=== PATIENT | male | born 1960 | race Caucasian/White ===

== ENCOUNTER 2019-11-27 10:10 | Inpatient (IN) | payer MEDICARE, OTHER, SELFPAY ==
[2019-11-27] VITALS (11 sets, daily range): BP systolic 96–179; BP diastolic 56–115; PULSE 88–108; RESP 18–26; TEMP 36.4–36.9; O2SAT 92–95; BMI 34.0; BMI 26.4
--- NOTE | 2019-11-27 10:19 | ECG_ITS ---
APPROVED REPORT Exam: Resting ECG HR:105 bpm ECG Measurements Heart Rate 105 AXES DE 138 P 61 QRSd 90 QRS 57 QT 368 T 61 QTc 486 <Conclusion> Sinus tachycardia Left atrial abnormality Borderline ECG Electronically signed by : Nasim Barnett, 11/28/2019 07:21:20
--- NOTE | 2019-11-27 10:22 | XR_ITS ---
PROCEDURE: XR CHEST PORTABLE Referring Doctor: Javier Nunez Patient Age:59Y CLINICAL HISTORY: confusion mental status changes. Possible fall COMPARISON: CR [id number] from 09/02/[address] HEAD/BRAIN WO CON from 11/27/[address] CERVICAL SPINE WO CON from 11/27/2019 FINDINGS: Airspace disease at the right lower lobe with elevation right hemidiaphragm. Suspect this reflects mainly atelectasis RLL with possible infiltrate. The right infrahilar region is generous and slightly dense-will require follow-up PA and lateral chest. A CT chest may be considered subsequently if the right infrahilar prominence persist but the right upper lung appears slightly hyperexpanded. The left lung is clear unremarkable. Heart is upper normal in size. Left gricel superior mediastinum unremarkable. No pleural effusion, no pneumothorax. IMPRESSION: Airspace disease right lower lobe with elevation right hemidiaphragm I suspect mainly viewing mainly atelectasis RLL,, with possible associated pneumonic infiltrate . Suggestion of slightly dense and generous right infrahilar region warrants follow-up on subsequent PA and lateral CXRs studies-and if persist CT may be warranted. Dictated by: Jasvir Murdock MD 11/27/2019 12:19 Jasvir Murdock MD in [place] 11/27/2019 12:19
--- NOTE | 2019-11-27 10:22 | CT_ITS ---
PROCEDURE: CT HEAD/BRAIN WO CON Referring Doctor: Javier Nunez Patient Age:59Y CLINICAL INDICATION: confusion fell Altered mental status COMPARISON: CT CT CERVICAL SPINE WO CON from 11/27/2019 TECHNIQUE: Standard axial images were obtained.. No IV contrast. All CT scans at the facility use one or more dose reduction, viz: automated exposure control, ma/kV adjustment per patient size (including targeted exams where dose is matched to indication, i.e. head), or iterative reconstruction technique. FINDINGS: The head is tilted in the CT gantry but despite this there appears to be additional low-density overlying the left frontal lobe. This is most evident more inferiorly overlying the left frontal lobe where this collection measures up to 6.3 mm CSF density collection maximum thickness overlying the left frontal lobe. This appearance suggestion a suspect for a thin chronic subdural hematoma. Is there history of prior head trauma?. This suspect small chronic subdural extends back tapering towards the left temporal lobe. And also also appears to be evident at the floor the left cranial fossa on this axial only image set.. There is no prominent associated mass effect; only question some very slight loss of sulci at the left frontal lobe and slightly... No midline shift. . No acute hemorrhage, no discrete acute extra-axial collection evident. Third ventricle and lateral ventricles otherwise unremarkable. Posterior fossa. No acute findings there may be some mild atrophy and I would note that the subdural spaces slightly more generous than left than right but this may merely be due to atrophy in positioning at the posterior fossa. Tortuous ectatic left vertebral artery noted. Mild atherosclerotic calcification at the vessels [id number] but no prominent findings here. The visualized portions the paranasal sinuses are clear. No mucosal thickening or air-fluid levels. Orbits unremarkable. Mastoid air cells a extensively developed and clear on right. Left mastoid is less well developed and there is opacification of many of the remaining mastoid air cells here towards mastoid tip of reflecting mild mastoid effusion. The middle ears clear bilaterally. IAC's unremarkable. Skull intact IMPRESSION: 1.Findings suggest small old appearing, low-density thin chronic subdural collection overlying the left frontal lobe.. No midline shift or prominent mass effect is; only perhaps slight loss of sulci at frontal lobe 2..No acute hemorrhage. No acute appearing extra-axial collection 3. Other minor observations in body of report Dictated by: Jasvir Murdock MD 11/27/2019 11:32 Jasvir Murdock MD in [place] 11/27/2019 11:32
[2019-11-27 10:37] LABS: Microscopic, Urine URINE MICROSCOPIC (MICROSCOPIC)
[2019-11-27 10:41] LABS: Appearance,Urine CLEAR (Clear); Blood, Urine 1+ (Negative); Color,Urine DK YELLOW (Yellow); Glucose,Urine (UA) Negative (Negative); Ketones,Urine TRACE (Negative); Leukocyte Esterase,Urine Negative (Negative); Nitrate,Urine Negative (Negative); Protein,Urine 1+ (Negative); Specific Gravity, Urine 1.025 (1.005-1.030)
[2019-11-27 10:42] LABS: Chloride 102 mmol/L (98-107); Potassium 3.2 mmoL/L (3.5-5.1); Sodium 143 mmol/L (136-145)
[2019-11-27 10:43] LABS: Basophils % 0.4 % (0.1-2.0); Eosinophils % 0.3 % (0.1-12.0); Hematocrit 49.9 % (42.0-52.0); Hemoglobin 17.7 g/dL (14.1-18.0); Lymphocytes # 1.1 K/mm3 (0.7-4.5); Lymphocytes % 11.7 % (10-50); Mean Corpuscular HGB Conc 35.4 g/dL (31.8-35.4); Mean Corpuscular Hemoglobin 33.3 pg (27.0-31.2); Mean Corpuscular Volume 93.8 fl (80-94); Mean Platelet Volume 10.7 fl (7.4-10.4); Monocytes # 0.5 K/mm3 (0.1-1.0); Neutrophils # 7.4 K/mm3 (1.8-7.8); Neutrophils % 81.6 % (37.0-80.0); Platelet Count 204 K/mm3 (142-424); Red Blood Count 5.32 M/mm3 (4.60-6.20); Red Cell Distribution Width 14.8 % (11.5-17.5)
[2019-11-27 10:44] LABS: Blood Urea Nitrogen 45 mg/dl (9-20); Creatinine Clearance Estimated 111 mL/min (50-200); Estimated Glomerular Filt Rate 76 ml/min (>60); GFR (African American) 93 ML/MIN (>60)
[2019-11-27 10:45] LABS: Bilirubin,Urine 1+ (Negative)
[2019-11-27 10:45] LABS: Alanine Aminotransferase 213 U/L (12-78); Albumin/Globulin Ratio 1.1 (1.1-1.8); Alkaline Phosphatase 98 U/L (38-126); Anion Gap 19.2 mEq/L (5-15); Aspartate Amino Transferase 402 U/L (17-59); Calcium 9.4 mg/dl (8.4-10.2); Carbon Dioxide 25 mmol/L (22.0-30.0); Globulin 3.7 g/dL (1.3-3.2); Glucose 119 mg/dl (74-100); Total Protein,Serum 7.7 g/dl (6.3-8.2)
--- NOTE | 2019-11-27 10:45 | HMH.EDGENADL ---
ED Disposition Clinical Impression: Rhabdomyolysis, Pneumonia, Subdural hematoma, Hypermagnesemia, Hyperphosphatemia, Altered mental status Disposition: Admitted As Inpatient Condition on Discharge: Fair (admitted) - Critical Care Critical Care Time: No Attestation: On 11/27/19, the high probability of a clinically significant, sudden or life threatening deterioration of the following system(s) required my full and direct attention, intervention and personal management. The time I documented below is in addition to time spent performing reported procedures but includes the following listed in this critical care notation. Medical Decision Making - Medical Records Medical records reviewed: Yes: I reviewed the patient's medical records. - Moe Inquiry Pt receiving controlled substance: No Vital Signs: 11/27/19 10:11 11/27/19 10:50 11/27/19 11:00 Temperature 97.7 F Temperature Source Rectal Pulse Rate [Left Radial] 104 H 106 H 106 H Respiratory Rate 20 Blood Pressure [Right Arm] 159/105 H 179/115 H 132/105 H Blood Pressure Mean [Right Arm] 123 136 114 Blood Pressure Source [Right Arm] Automatic Cuff Blood Pressure Position [Right Arm] Sitting Sitting Sitting 02 Sat by Pulse Oximetry 94 L 92 L Oxygen Delivery Method Room Air Room Air 11/27/19 11:30 11/27/19 12:25 Temperature Temperature Source Pulse Rate [Left Radial] 108 H 99 H Respiratory Rate Blood Pressure [Right Arm] 158/106 H 166/100 H Blood Pressure Mean [Right Arm] 123 122 Blood Pressure Source [Right Arm] Automatic Cuff Blood Pressure Position [Right Arm] Sitting Sitting 02 Sat by Pulse Oximetry 94 L Oxygen Delivery Method Room Air - Lab Data Lab Results 11/27/19 09:34: WBC 9.0, RBC 5.32, Hgb 17.7, Hct 49.9, MCV 93.8, MCH 33.3 H, MCHC 35.4, RDW 14.8, Plt Count 204, MPV 10.7 H, Neut % (Auto) 81.6 H, Lymph % (Auto) 11.7, [place] % (Auto) 6.0, Eos % (Auto) 0.3, Baso % (Auto) 0.4, Neut # (Auto) 7.4, Lymph # (Auto) 1.1, [place] # (Auto) 0.5, Eos # (Auto) 0.0, Baso # (Auto) 0.0 11/27/19 09:34: Sodium 143, Potassium 3.2 L, Chloride 102, Carbon Dioxide 25, Anion Gap 19.2 H, BUN 45 H, Creatinine 1.00, Estimated Creat Clear 111, Estimated GFR 76, Est GFR ( Amer) 93, Glucose 119 H, Calcium 9.4, Total Bilirubin 2.0 H, AST 402 H*, ALT 213 H, Alkaline Phosphatase 98, Total Protein 7.7, Albumin 4.0, Globulin 3.7 H, Albumin/Globulin Ratio 1.1 11/27/19 09:34: Total Creatine Kinase 2763 H*, CK-MB (CK-2) 14.1 H*, CK-MB (CK-2) Rel Index 0.5, Troponin I < 0.01 11/27/19 09:34: PT 13.5 H, INR 1.24 H, Fibrinogen 829 H 11/27/19 09:34: Phosphorus 4.0, Magnesium 3.0 H 11/27/19 09:43: SARS-CoV-2 IgG Ab (Rapid) Negative, SARS-CoV-2 IgM Ab (Rapid) Negative 11/27/19 10:23: Urine Color Dk yellow, Urine Appearance Clear, Urine pH 6.0, Ur Specific [place] 1.025, Urine Protein 1+, Urine Glucose (UA) Negative, Urine Ketones Trace, Urine Blood 1+, Urine Nitrate Negative, Urine Bilirubin 1+ A, Urine Urobilinogen 1.0, Ur Leukocyte Esterase Negative, Urine RBC 5-10, Urine WBC 3-5, Ur Squamous Epith Cells 3-5 11/27/19 10:24: Lactate 3.5 H 11/27/19 10:24: Urine Opiates Screen Negative, Urine Methadone Screen Negative, Ur Barbituates Screen Negative, Ur Phencyclidine Scrn Negative, Ur Amphetamines Screen Negative, U Benzodiazepines Scrn Negative, Urine Cocaine Screen Negative, U Marijuana (THC) Screen Negative Result diagrams: 11/27/19 09:34 11/27/19 09:34 Orders (Tests/Meds): ED MEDICATIONS Generic Name Dose Route Start Last Admin Trade Name Freq PRN Reason Stop Dose Admin Carvedilol 12.5 mg 11/27/19 12:30 Carvedilol 12.5mg Tablet PO 12/27/19 12:29 BID BAYRON Azithromycin 500 mg/ Sodium 250 mls @ 250 mls/hr 11/27/19 12:00 11/27/19 12:02 Chloride IV 12/11/19 11:59 250 mls/hr Q24H BAYRON Administration Protocol Ceftriaxone Sodium 1 gm/ 50 mls @ 100 mls/hr 11/27/19 12:00 11/27/19 11:55 Sodium Chloride IV 12/11/19 11:59 100 mls/hr Q24
[2019-11-27 10:46] LABS: Lactic Acid 3.5 mmol/L (0.7-2.1)
[2019-11-27 10:52] LABS: Benzodiazepines Screen,Urine Negative ng/ml (<200)
[2019-11-27 10:53] LABS: Amphetamine/Metha Screen,Urine Negative ng/ml (<1000); Barbiturates Screen,Urine Negative ng/ml (<200)
[2019-11-27 10:54] LABS: Methadone Screen,Urine Negative ng/ml (<300)
[2019-11-27 10:55] LABS: Cannabinoid Screen,Urine Negative ng/ml (<50); Cocaine Screen,Urine Negative ng/ml (<300)
[2019-11-27 10:56] LABS: Opiate Screen,Urine Negative ng/ml (<300)
[2019-11-27 10:57] LABS: Phencyclidine Screen,Urine Negative ng/ml (<25)
[2019-11-27 10:57] LABS: Creatine Kinase 2763 U/L (55-170)
--- NOTE | 2019-11-27 10:57 | CT_ITS ---
PROCEDURE: CT CERVICAL SPINE WO CON Referring Doctor: Javier Nunez Patient Age:59Y CLINICAL INDICATION: tenderness fall confusion altered mental status COMPARISON: No exams were available for comparison TECHNIQUE: No IV contrast Helical axial images obtained with sagittal and coronal reformats. All CT scans at the facility use one or more dose reduction, viz: automated exposure control, ma/kV adjustment per patient size (including targeted exams where dose is matched to indication, i.e. head), or iterative reconstruction technique. FINDINGS: No acute fracture nor subluxation C-spine.. Normal prevertebral soft tissues.. Normal C1/C2 relationships. There are degenerative changes in the C-spine. C3/4 with scant posterior spurring at midline and borderline disc space narrowing C4/5 scant uncovertebral joint hypertrophy to the left C5/6 degenerative disc space narrowing most notable at this level with prominent diffuse posterior osteophytic ridging and spurring, yielding spinal stenosis and generous bilateral foraminal encroachment. C6/7. Moderate focal posterior spurring right paracentral which slightly indents thecal sac to the right. C7/T1 intact.. Mild Minimal degenerative facet changes noted at C5/6 C6/7 Apices of lungs are clear with no acute findings. Again note the left mastoid air cells are less well developed with opacification of few of the mastoid air cells most evident towards left mastoid tip reflecting scant left mastoid effusion IMPRESSION: 1.Cervical spine intact with no acute fracture nor subluxation. 2.Degenerative changes C-spine more-most pronounced at C5/6. C5/6 degenerative disc narrowing with spinal stenosis due the prominent diffuse posterior spurring/osteophyte formation Dictated by: Jasvir Murdock MD 11/27/2019 11:40 Jasvir Murdock MD in [place] 11/27/2019 11:40
[2019-11-27 10:58] LABS: CKMB Relative Index 0.5 U/L (0-4.0); Creatine Kinase MB 14.1 ng/ml (0.0-2.03)
[2019-11-27 10:59] LABS: Troponin I < 0.01 ng/ml (0.00-0.034)
--- NOTE | 2019-11-27 10:59 | PC.NURSE ---
Pt to rad
--- NOTE | 2019-11-27 10:59 | PC.NURSE ---
aware of critical results
[2019-11-27 11:36] LABS: Coronavirus 19 IgG Antibody Negative (Negative); Coronavirus 19 IgM Antibody Negative (Negative)
[2019-11-27 11:36] LABS: Prothrombin Time 13.5 seconds (9.4-11.8)
[2019-11-27 11:37] LABS: INR 1.24 (0.9-1.1)
[2019-11-27 11:38] LABS: Fibrinogen 829 mg/dL (204-500)
--- NOTE | 2019-11-27 12:11 | PC.NURSE ---
spoke with carmen ARANGO regarding pt admission. was unable to reach care management x 4 calls
--- NOTE | 2019-11-27 12:34 | PC.NURSE ---
report called to sarah lanier rn
--- NOTE | 2019-11-27 12:46 | PC.NURSE ---
Pt arrived to the floor at this time.
--- NOTE | 2019-11-27 13:25 | P.CONPHA_ITS ---
[facility] Pharmacy VTE Monitoring - Patient Demographics Admission date: 11/27/19 Report Date: 11/27/19 Time: 13:25 Allergies/Adverse Reactions: Patient Allergies loratadine Allergy (Unknown, Verified 11/27/19 11:02) Unknown allergy reaction Tetracyclines Allergy (Unknown, Verified 11/27/19 11:02) Unknown allergy reaction Height: 1.7 m Weight: 98.43 kg Patient Problems: Current Active Problems Rhabdomyolysis (Acute) Pneumonia (Acute) Subdural hematoma (Acute) Hypermagnesemia (Acute) Hyperphosphatemia (Acute) Altered mental status (Acute) - VTE Risk Labs: VTE Related Lab Results Hgb 17.7 g/dL (14.1-18.0) 11/27/19 09:34 Hct 49.9 % (42.0-52.0) 11/27/19 09:34 Plt Count 204 K/mm3 (142-424) 11/27/19 09:34 PT 13.5 seconds (9.4-11.8) H 11/27/19 09:34 INR 1.24 (0.9-1.1) H 11/27/19 09:34 Fibrinogen 829 mg/dL (204-500) H 11/27/19 09:34 BUN 45 mg/dl (9-20) H 11/27/19 09:34 Creatinine 1.00 mg/dl (0.66-1.25) 11/27/19 09:34 Estimated Creat Clear 111 mL/min (50-200) 11/27/19 09:34 VTE Score: 2 - Prophylaxis VTE Prophylaxis Ordered?: Yes Types of VTE Prophylaxis: TEDS Knee High Location of Applied Device: Bilateral Lower Extremeties
--- NOTE | 2019-11-27 13:33 | HMH.PHAINT ---
MEDICATION RECONCILIATION COMPLETED ON PATIENT USING EXTERNAL FILL HISTORY FROM PHARMACY. -MALATHI OLIVER, CHARLEYD
--- NOTE | 2019-11-27 14:26 | HMH.PHAINT ---
HOME MEDICATIONS RECONCILED FROM DR. BEARD OFFICE MED LIST. PATIENT IS A POOR HISTORIAN AND DOES NOT KNOW THE LAST TIME HE TOOK MOST OF THESE. SERTRALINE AND CARVEDILOL ARE THE ONLY MEDS HE'S HAD FILLED IN THE LAST 30 DAYS.
[2019-11-27 14:34] LABS: Reflex Lactic Add Lactic Reflex
[2019-11-27 15:11] LABS: Lactic Acid Follow Up (RFLX 1) 2.2 mmol/L (0.7-2.1)
--- NOTE | 2019-11-27 16:13 | HMH.HP ---
*Admission Date: 11/27/19 *Chief complaint: Found down at home *History of present illness: 59-year-old male with history of hypertension, hypothyroidism, and suspected COPD presented to the emergency department today after family alerted EMS when patient was found in his residence on the floor with inability to get up and patient was confused as to how he had fallen. Patient had been on the floor for unknown period of time but it was suspected to be several hours as the patient could only recall the prior evening. He underwent evaluation in the emergency department which revealed elevated CPK consistent with rhabdomyolysis and work-up also revealed a right lower lobe infiltrate. Patient was admitted for IV fluids and IV antibiotics. Patient does report that he has had subjective fevers and chills over the last 4 to 5 days with a dry cough. He denies loss of smell or taste. He denies nasal congestion, ear pain, sore throat. Patient denies shortness of breath. He denies any sick contacts. [facility] History I have reviewed the patient's past medical history: Yes Medical History: Reports:: Chronic Obstructive Pulmonary Disease (COPD), Hypertension Denies:: Cancer, Diabetes Mellitus Type 1, Diabetes Mellitus Type 2, MRSA *Have you ever received a pneumonia vaccine?: No *Have you received a flu vaccine this season?: No Other Medical History: Reports: Hypothyroidism Laterality Cases: Bilateral: Cataract Amputation: No Fractures: No - *Social History Last grade of school completed: 5th or 6th Smoking Status: Current every day smoker Tobacco Type: cigarettes # Packs/Day (cigarettes): 1 Alcohol Intake: never *Occupational Status:: disabled Housing: other Household Members: other *Travel in the last 8 weeks: None Family Hx:: Unable to obtain Review of Systems - Constitutional Reports body ache(s), Reports chills, Reports fever(s) - Eyes Reports loss of vision - *Cardiovascular Denies chest pain, Denies chest pain at rest, Denies chest pain with activity - *Respiratory Reports cough, Denies change in phlegm color, Denies chest congestion, Denies shortness of breath, Denies shortness of breath with activity, Denies excessive phlegm production, Denies coughing up blood, Denies pain with cough - *Gastrointestinal Denies abdominal pain, Denies belching, Denies bloating - *Musculoskeletal Denies abnormal walking Meds Home Medications Medication Instructions Recorded Confirmed Type Cetirizine HCl 10 mg PO DAILY 11/27/19 11/27/19 History Levothyroxine Sodium 50 mcg PO DAILY 11/27/19 11/27/19 History [Levothyroxine 50mcg (0.05mg) Tab] Sertraline HCl [Zoloft 50mg tablet] 50 mg PO DAILY 11/27/19 11/27/19 History carvediloL [Carvedilol 12.5mg Tab] 12.5 mg PO BID 11/27/19 11/27/19 History gemfibroziL [Gemfibrozil] 600 mg PO BID 11/27/19 11/27/19 History Allergies Allergy/AdvReac Type Severity Reaction Status Date / Time loratadine Allergy Unknown Unknown Verified 11/27/19 11:02 allergy reaction Tetracyclines Allergy Unknown Unknown Verified 11/27/19 11:02 allergy reaction Exam Vital signs and Labs for Last 24 Hours: Temp Pulse Resp BP Pulse Ox 98.1 F 88 24 132/73 95 11/27/19 15:43 11/27/19 15:43 11/27/19 15:43 11/27/19 15:43 11/27/19 15:43 Laboratory Results - last 24 hr 11/27/19 09:34: WBC 9.0, RBC 5.32, Hgb 17.7, Hct 49.9, MCV 93.8, MCH 33.3 H, MCHC 35.4, RDW 14.8, Plt Count 204, MPV 10.7 H, Neut % (Auto) 81.6 H, Lymph % (Auto) 11.7, [place] % (Auto) 6.0, Eos % (Auto) 0.3, Baso % (Auto) 0.4, Neut # (Auto) 7.4, Lymph # (Auto) 1.1, [place] # (Auto) 0.5, Eos # (Auto) 0.0, Baso # (Auto) 0.0 11/27/19 09:34: Sodium 143, Potassium 3.2 L, Chloride 102, Carbon Dioxide 25, Anion Gap 19.2 H, BUN 45 H, Creatinine 1.00, Estimated Creat Clear 111, Estimated GFR 76, Est GFR ( Amer) 93, Glucose 119 H, Calcium 9.4, Total Bilirubin 2.0 H, AST 402 H*, ALT 213 H, Alkaline Phosphatase 98, Total Prote
[2019-11-27 16:50] LABS: Reflex Lactic (2 hrs) Add Lactic Reflex
--- NOTE | 2019-11-27 17:03 | PC.NURSE ---
PT IS RESTING IN BED. NO COMPLAINTS OF DISCOMFORT. WHEN PT ARRIVED TO THE FLOOR FROM THE ED HE WAS ALERT AND ORIENTED X3. PT WAS ABLE TO VOICE NAME/ AND HE KNEW HE WAS AT THE HOSPITAL. PT WAS NOT AWARE OF WHAT TIME IT WAS AND DOES NOT REMEMBER FALLING AT HOME OR HOW LONG HE WAS ON THE FLOOR. PT STATED HE DID NOT KNOW THE LAST TIME HE TOOK HIS DAILY MEDICATIONS. PT DOES REMEMBER THE AMBULANCE BRINGING HIM TO THE HOSPITAL. PT HAS AN ABRASION TO THE LUE WITH TELFA/KERLIX DRESSING. REDNESS NOTED TO THE BUTTOCKS. LUNG SOUNDS DIMINISHED. ABDOMEN SOFT/NON TENDER WITH ACTIVE BOWEL SOUNDS. RECEIVED TYLENOL FOR ELEVATED TEMP 100.5, TEDS NOTED TO BLE. PT STATES HE CAN ONLY SEE OUT OF HIS RT EYE. WILL CONTINUE TO MONITOR.
[2019-11-27 17:50] LABS: Lactic Acid Follow up (RFLX 2) 1.5 mmol/L (0.7-2.1)
--- NOTE | 2019-11-27 18:56 | PC.NURSE ---
RT gave pt a neb tx with sodium chloride to induce SPT. SPT collected and sent to lab from second floor at 181
--- NOTE | 2019-11-27 19:33 | PC.NURSE ---
Pt's O2 sat at rest on room air = 92%.
[2019-11-28] VITALS (7 sets, daily range): BP systolic 101–125; BP diastolic 60–66; PULSE 75–87; RESP 16–18; TEMP 36.4–37.1; O2SAT 91–98; BMI 27.3
--- NOTE | 2019-11-28 03:48 | PC.NURSE ---
pt A&OX4 lungs CTA. pt denies SOA or pain. BS active F/c draining dark yellow urine. TEDS in place BLE. bed alarm activated. pt has rested quietly this shift
[2019-11-28 06:29] LABS: Lymphocytes # 0.8 K/mm3 (0.7-4.5); Mean Platelet Volume 9.9 fl (7.4-10.4)
[2019-11-28 06:38] LABS: INR 1.19 (0.9-1.1)
[2019-11-28 06:56] LABS: Chloride 115 mmol/L (98-107); Sodium 141 mmol/L (136-145)
[2019-11-28 06:57] LABS: Potassium 3.4 mmoL/L (3.5-5.1)
[2019-11-28 06:59] LABS: Alanine Aminotransferase 122 U/L (12-78); Albumin Level 2.2 g/dl (3.5-5.0); Alkaline Phosphatase 50 U/L (38-126); Anion Gap 9.4 mEq/L (5-15); Aspartate Amino Transferase 207 U/L (17-59); Bilirubin,Total 1.3 mg/dl (0.2-1.3); Blood Urea Nitrogen 26 mg/dl (9-20); Carbon Dioxide 20 mmol/L (22.0-30.0); Creatinine Clearance Estimated 172 mL/min (50-200); Estimated Glomerular Filt Rate 138 ml/min (>60); GFR (African American) 167 ML/MIN (>60); Globulin 2.3 g/dL (1.3-3.2); Total Protein,Serum 4.5 g/dl (6.3-8.2)
[2019-11-28 07:00] LABS: Basophils % 0.4 % (0.1-2.0); Glucose 91 mg/dl (74-100); Hematocrit 36.7 % (42.0-52.0); Lymphocytes % 18.5 % (10-50); Magnesium 2.3 mg/dl (1.6-2.3); Mean Corpuscular HGB Conc 34.8 g/dL (31.8-35.4); Mean Corpuscular Hemoglobin 33.8 pg (27.0-31.2); Mean Corpuscular Volume 97.1 fl (80-94); Monocytes # 0.6 K/mm3 (0.1-1.0); Monocytes % 13.1 % (1.7-9.3); Neutrophils % 67.1 % (37.0-80.0); Phosphorous 3.2 mg/dl (2.5-4.5); Platelet Count 147 K/mm3 (142-424); Red Blood Count 3.78 M/mm3 (4.60-6.20); Red Cell Distribution Width 14.8 % (11.5-17.5); White Blood Count 4.5 K/mm3 (4.8-10.8)
[2019-11-28 07:01] LABS: Hemoglobin 12.8 g/dL (14.1-18.0)
--- NOTE | 2019-11-28 07:06 | XR_ITS ---
PROCEDURE: XR CHEST 2V CLINICAL HISTORY: pneumonia progress study, clinically improved COMPARISON: CR XR CHEST PORTABLE from 11/27/2019 FINDINGS: The cardiomediastinal silhouette and pulmonary vascularity are within normal limits. There has been almost complete clearing of the minimal ill-defined pneumonic infiltrate right perihilar region and right base. There is minimal blunting of the right costophrenic angle suggesting tiny pleural effusion. The right upper lung field and left lung [place] remain clear. IMPRESSION: Resolving minimal airspace disease right lower lobe, tiny reactive right pleural effusion Dictated by: Dr. Abdon Teixeira MD 11/28/2019 10:49 Dr. Abdon Teixeira MD in [place] 11/28/2019 10:49
--- NOTE | 2019-11-28 07:09 | HMH.ACPN2 ---
Internal Medicine - PN: Subj *Date: 11/28/19 *Time: 07:09 Interval history: Patient has no complaints this morning. Nursing staff reports overnight he had hypotension after administration of his evening dose of carvedilol. Patient himself denies shortness of breath or any pain. He has maintained good urine output. Nursing staff reports patient was oriented to person, place, time overnight. Exam Vital signs and Labs for Last 24 Hours: Temp Pulse Resp BP Pulse Ox 97.8 F 77 18 113/61 95 11/28/19 04:00 11/28/19 04:00 11/28/19 04:00 11/28/19 04:00 11/28/19 04:00 Laboratory Results - last 24 hr 11/27/19 09:34: WBC 9.0, RBC 5.32, Hgb 17.7, Hct 49.9, MCV 93.8, MCH 33.3 H, MCHC 35.4, RDW 14.8, Plt Count 204, MPV 10.7 H, Neut % (Auto) 81.6 H, Lymph % (Auto) 11.7, [place] % (Auto) 6.0, Eos % (Auto) 0.3, Baso % (Auto) 0.4, Neut # (Auto) 7.4, Lymph # (Auto) 1.1, [place] # (Auto) 0.5, Eos # (Auto) 0.0, Baso # (Auto) 0.0 11/27/19 09:34: Sodium 143, Potassium 3.2 L, Chloride 102, Carbon Dioxide 25, Anion Gap 19.2 H, BUN 45 H, Creatinine 1.00, Estimated Creat Clear 111, Estimated GFR 76, Est GFR ( Amer) 93, Glucose 119 H, Calcium 9.4, Total Bilirubin 2.0 H, AST 402 H*, ALT 213 H, Alkaline Phosphatase 98, Total Protein 7.7, Albumin 4.0, Globulin 3.7 H, Albumin/Globulin Ratio 1.1 11/27/19 09:34: Total Creatine Kinase 2763 H*, CK-MB (CK-2) 14.1 H*, CK-MB (CK-2) Rel Index 0.5, Troponin I < 0.01 11/27/19 09:34: PT 13.5 H, INR 1.24 H, Fibrinogen 829 H 11/27/19 09:34: Phosphorus 4.0, Magnesium 3.0 H 11/27/19 09:43: SARS-CoV-2 IgG Ab (Rapid) Negative, SARS-CoV-2 IgM Ab (Rapid) Negative 11/27/19 10:23: Urine Color Dk yellow, Urine Appearance Clear, Urine pH 6.0, Ur Specific [place] 1.025, Urine Protein 1+, Urine Glucose (UA) Negative, Urine Ketones Trace, Urine Blood 1+, Urine Nitrate Negative, Urine Bilirubin 1+ A, Urine Urobilinogen 1.0, Ur Leukocyte Esterase Negative, Urine RBC 5-10, Urine WBC 3-5, Ur Squamous Epith Cells 3-5 11/27/19 10:24: Lactate 3.5 H 11/27/19 10:24: Urine Opiates Screen Negative, Urine Methadone Screen Negative, Ur Barbituates Screen Negative, Ur Phencyclidine Scrn Negative, Ur Amphetamines Screen Negative, U Benzodiazepines Scrn Negative, Urine Cocaine Screen Negative, U Marijuana (THC) Screen Negative 11/27/19 14:46: Lactate 2.2 H 11/27/19 17:36: Lactate 1.5 11/28/19 06:02: WBC 4.5 L D, RBC 3.78 L D, Hgb 12.8 L D, Hct 36.7 L, MCV 97.1 H, MCH 33.8 H, MCHC 34.8, RDW 14.8, Plt Count 147 D, MPV 9.9, Neut % (Auto) 67.1, Lymph % (Auto) 18.5, [place] % (Auto) 13.1 H, Eos % (Auto) 1.0, Baso % (Auto) 0.4, Neut # (Auto) 3.0, Lymph # (Auto) 0.8, [place] # (Auto) 0.6, Eos # (Auto) 0.0, Baso # (Auto) 0.0 11/28/19 06:02: PT 13.0 H, INR 1.19 H 11/28/19 06:02: Sodium 141, Potassium 3.4 L, Chloride 115 H, Carbon Dioxide 20 L, Anion Gap 9.4, BUN 26 H D, Creatinine 0.60 L D, Estimated Creat Clear 172, Estimated GFR 138, Est GFR ( Amer) 167 D, Glucose 91 D, Phosphorus 3.2, Magnesium 2.3 D, Total Bilirubin 1.3, AST 207 H D, ALT 122 H D, Alkaline Phosphatase 50, Total Protein 4.5 L D, Albumin 2.2 L D, Globulin 2.3, Albumin/Globulin Ratio 1.0 L I & O for Last 24 hours: Intake & Output 11/25/19 11/26/19 11/27/19 11/28/19 11:59 11:59 11:59 11:59 Intake Total 4310 / 4310 Output Total 1250 / 1250 Balance 3060 / 3060 Weight 217 lb 202 lb Narrative: Patient appears comfortable and shows no signs of respiratory distress. He is oriented to person, place, time. Lung exam has improved with clearing of the rales and rhonchi in the right lung base from yesterday. Heart has a regular rate and rhythm. Abdomen is soft. Extremities have no edema BUN and creatinine have decreased. Transaminitis has improved Assessment and Plan (1) Pneumonia Status: Acute Category: Medical Code(s): J18.9 - Pneumonia, unspecified organism Clinically improving. Repeat chest x-ray with a PA and lateral film today. PT eval due to patient's
[2019-11-28 07:15] LABS: Calcium 7.1 mg/dl (8.4-10.2)
--- NOTE | 2019-11-28 07:34 | PC.NURSE ---
Lab called with notification result. Aerobic blood culture bottle came back staph w/ anish A gene detected and gram stain cocci in pairs and clusters.
--- NOTE | 2019-11-28 07:47 | PC.NURSE ---
Dr. Jo notified of aerobic blood culture result. Pt placed in contact precautions.
--- NOTE | 2019-11-28 07:47 | PC.NURSE ---
Called lab to let them know a rapid covid swab was ordered on the pt. Called radiology to let them know per Desiree per Dr Jo he doesn't want chest xray done until covid results are back.
--- NOTE | 2019-11-28 10:17 | PC.NURSE ---
Called radiology to let them know swab was negative.
--- NOTE | 2019-11-28 10:24 | PC.NURSE ---
Pt transported to radiology via wheelchair.
--- NOTE | 2019-11-28 11:30 | HMH.PTEV ---
Physical Therapy Evaluation Rehab PT IP Evaluation Start: 11/28/19 07:06 Freq: ONCE Status: Active Protocol: Document 11/28/19 11:27 PHORNE (Rec: 11/28/19 11:30 PHORNE [id number]) Subjective/History History History 59 yowm adm to [facility] with weakness and fall at home. He reports he lives alone and was independent with mobility prior to adm. Subjective Subjective Pt reports no c/o at this time . Rehab PT IP Eval Objective Appearance Patient Behavior Appropriate Patient Orientation Person,Place,Time Difficulty following instructions none Speech Pattern Clear Ambulation Patient Able to Ambulate Yes Ambulation Observation IP General Gait Pattern Observation Wide Based Gait Ambulation Distance (feet) 20 Ambulation Assistive Device Rolling Walker Ambulation Ability Contact Guard/Hand Hold Balance Ability to Arise Able, uses arms to help Sitting Balance Steady, safe Standing Balance Steady, wide stance Dynamic Sitting Balance Ability Good Dynamic Standing Balance Ability Fair Transfers Bed Transfer Ability Supervision/Stand by Chair Transfer Ability Supervision/Stand by Sit to Stand Bed Transfer Ability Supervision/Stand by Sit to Stand Chair Transfer Ability Supervision/Stand by ROM All Extremities PT ROM Status WFL MMT All Extremities PT MMT WFL Rehab PT IP prob,goals,plan Problems Date of Evaluation: 11/28/19 PT IP Problems Bed Mobility,Transfers,Gait Rehab Potential Rehab Potential Good Equipment Needs Assistive Devices Rolling / Wheeled Walker Plan PT Intervention Plan Bed Mobility,Transfers,Gait, Therapeutic Exercise PT Plan Frequency BID Duration LOS Discharge Goals Bed Transfer Ability Supervision/Stand by Sit to Stand Chair Transfer Ability Supervision/Stand by Ambulation Assistive Device Rolling Walker Ambulation Distance (feet) 30 Discharge Plan PT Discharge Plan Pt is appropriate to return home once medically stable, recommend home health therapy. G -code Required No Eval Complexity Eval Charge Codes 46607 - Moderate Complexity PHYSICIAN CERTIFICATION: I certify the specified therapy services for Miguel Ángel Jacobson are required, authorized, and reviewed every 30 days.
--- NOTE | 2019-11-28 12:28 | PC.NURSE ---
Addendum entered by Violetta Church RN 11/28/19 12:37: ACTIVE BOWEL SOUNDS HEARD IN ALL 4 QUADRANTS. SOFT AND NONTENDER ABDOMEN. Original Note: A&OX4. PT HAS TOLERATED ROOM AIR WELL THROUGHOUT SHIFT. RESPIRATIONS REGULAR AND UNLABORED. LUNG SOUNDS BILATERALLY CLEAR. OCCASIONAL PRODUCTIVE COUGH NOTED. HAND INSURANCE AGENCY OWNER EQUAL. +2 PULSES NOTED THROUGHOUT. NO EDEMA NOTED. NO REPORTS OF PAIN THUS FAR. PT HAS REMAINED AFEBRILE. DRESSING NOTED TO L ARM. CDI. REDNESS NOTED TO HIS BUTTOCK AREA. TAYLOR WAS D/C THIS SHIFT AND PT HAS BEEN VOIDING WELL SINCE THEN. CLEAR DARK YELLOW URINE. NO BM THUS FAR. PT AMBULATES TO RESTROOM W ASSIST X 1 AND ROLLING WALKER. FAIRLY STEADY GAIT NOTED. PT TOLERATES WELL. PT CURRENTLY SITTING IN THE CHAIR. CALL LIGHT WITHIN REACH. VSS. WILL CONTINUE TO MONITOR.
--- NOTE | 2019-11-28 12:53 | SW/DCPLANNER ---
Addendum entered by Gisele Mansfield 12/01/19 13:41: PATIENT DISCHARGED OVER THE WEEKEND AND I CALLED [facility] PER HIS CHOICE AND SET HIS HOME HEALTH UP TO BE SEEN IN THE AM... Original Note: I have spoke with this patient regarding discharge plans. Patient intends to discharge back home and is agreeable to home health services. Patient has chose to use [facility] for home health services. Home Health will be set up at time of discharge (if d/c over weekend will be set up on Sunday morning by CM). Patient could potentially discharge over the weekend.
--- NOTE | 2019-11-28 17:25 | PC.NURSE ---
Pt refused sodium chloride breathing treatment for sputum induction. Coughed sputum into cup. RT walked sample to lab after obtained a 1716.
--- NOTE | 2019-11-28 18:37 | PC.NURSE ---
ALERT AND ORIENTED X4. PT IS SLOW TO PROCESS INSTRUCTIONS AT TIMES. PT HAS BEEN UP TO CHAIR AND AMBULATED WITH STAND BY ASSISTANCE TO BATHROOM. LUNGS CTA. O2 SAT HIGH 90'S ON RA. PT DENIES SOB. ABDOMEN IS SOFT, ROUND, AND NON-TENDER WITH ACTIVE BS IN ALL QUADS. REPORTED BM THIS SHIFT. PT HAS ADEQUATE URINARY OUTPUT. APPETITE IS EXCELLENT AND PT TOLERATES DIET WITHOUT PROBLEM. DENIES PAIN. NO COMPLAINTS VOICED. VSS. NO DISTRESS NOTED. SAFETY MEASURES IN PLACE, WILL CONTINUE TO MONITOR
--- NOTE | 2019-11-28 19:08 | PC.NURSE ---
report given to jet
[2019-11-29] VITALS: BP 116/64; PULSE 77; RESP 18; TEMP 36.6; O2SAT 96
[2019-11-29 04:00] VITALS: BP 131/66; PULSE 78; RESP 16; TEMP 36.8; O2SAT 96
--- NOTE | 2019-11-29 04:03 | INFXCTL.NOTE ---
Pt A&OX4. lungs CTA. pt denies SOA or pain. Pt has ambulated to BR x1 assistance. dressing in place on lt arm c/d/i. pt has slept quietly this shift
[2019-11-29 05:00] VITALS: BMI 28.5
[2019-11-29 07:20] LABS: Chloride 110 mmol/L (98-107); Potassium 3.1 mmoL/L (3.5-5.1); Sodium 141 mmol/L (136-145)
[2019-11-29 07:22] LABS: Bilirubin,Unconjugated 0.7 mg/dL (0.0-1.1); Blood Urea Nitrogen 15 mg/dl (9-20); Creatinine Clearance Estimated 179 mL/min (50-200); Estimated Glomerular Filt Rate 138 ml/min (>60); GFR (African American) 167 ML/MIN (>60)
[2019-11-29 07:23] LABS: Alanine Aminotransferase 133 U/L (12-78); Albumin Level 2.7 g/dl (3.5-5.0); Alkaline Phosphatase 62 U/L (38-126); Anion Gap 10.1 mEq/L (5-15); Aspartate Amino Transferase 205 U/L (17-59); Bilirubin,Direct 0.2 mg/dl (0.0-0.4); Bilirubin,Indirect 0.8 mg/dL (0.0-0.9); Carbon Dioxide 24 mmol/L (22.0-30.0); Glucose 81 mg/dl (74-100); Total Protein,Serum 5.4 g/dl (6.3-8.2)
[2019-11-29 08:00] VITALS: BP 143/74; PULSE 83; RESP 18; TEMP 36.4; O2SAT 97
--- NOTE | 2019-11-29 08:11 | HMH.ACPN2 ---
Internal Medicine - PN: Subj *Date: 11/29/19 *Time: 08:11 Interval history: Patient has no new complaints. He denies pain. He continues to have slight cough. PT evaluated patient yesterday and he is deemed appropriate for return to home once medically stable. Currently his blood cultures are showing some gram-positive cocci. Exam Vital signs and Labs for Last 24 Hours: Temp Pulse Resp BP Pulse Ox 98.3 F 78 16 131/66 96 11/29/19 04:00 11/29/19 04:00 11/29/19 04:00 11/29/19 04:00 11/29/19 04:00 Laboratory Results - last 24 hr 11/29/19 06:29: Sodium 141, Potassium 3.1 L, Chloride 110 H, Carbon Dioxide 24, Anion Gap 10.1, BUN 15 D, Creatinine 0.60 L, Estimated Creat Clear 179, Estimated GFR 138, Est GFR ( Amer) 167, Glucose 81, Calcium 8.0 L D, Total Bilirubin 1.0, Direct Bilirubin 0.2, Conjugated Bilirubin 0.0, Indirect Bilirubin 0.8, Unconjugated Bilirubin 0.7, AST 205 H, ALT 133 H, Alkaline Phosphatase 62, Total Protein 5.4 L, Albumin 2.7 L D I & O for Last 24 hours: Intake & Output 11/26/19 11/27/19 11/28/19 11/29/19 11:59 11:59 11:59 11:59 Intake Total 4670 / 4670 3871 / 3871 Output Total 1550 / 1550 Balance 3120 / 3120 3871 / 3871 Weight 217 lb 202 lb 210 lb 6 oz Microbiology Reports for the Last 24 Hours: Microbiology 11/27/19 10:24 Blood Blood Culture - Preliminary Gram Positive Cocci 11/27/19 10:24 Blood Blood Culture - Preliminary 11/27/19 17:16 Sputum - Expectorated Sputum Gram Stain - Final 11/28/19 07:50 Nasopharyngeal Coronavirus COVID-19 PCR - Final Narrative: Patient does not look ill. He is sleeping when I enter the room and awakens easily. He is oriented to person place and time. Heart has a regular rate and rhythm. Lungs have rales at the right base. Lower extremities have no edema Assessment and Plan (1) Pneumonia Status: Acute Category: Medical Code(s): J18.9 - Pneumonia, unspecified organism Continue IV Rocephin and azithromycin (2) Altered mental status Status: Resolved Qualifiers: Altered mental status type: disorientation Qualified Code(s): R41.0 - Disorientation, unspecified Category: Medical Code(s): R41.82 - Altered mental status, unspecified (3) Hypermagnesemia Status: Resolved Category: Medical Code(s): E83.41 - Hypermagnesemia (4) Rhabdomyolysis Status: Resolved Category: Medical Code(s): M62.82 - Rhabdomyolysis (5) Hypokalemia Status: Resolved Category: Medical Code(s): E87.6 - Hypokalemia (6) Essential hypertension Status: Acute Category: Medical Code(s): I10 - Essential (primary) hypertension (7) Hypothyroidism Status: Acute Qualifiers: Hypothyroidism type: acquired Qualified Code(s): E03.9 - Hypothyroidism, unspecified Category: Medical Code(s): E03.9 - Hypothyroidism, unspecified (8) COPD (chronic obstructive pulmonary disease) Status: Acute Qualifiers: COPD type: unspecified COPD Qualified Code(s): J44.9 - Chronic obstructive pulmonary disease, unspecified Category: Medical Code(s): J44.9 - Chronic obstructive pulmonary disease, unspecified (9) Depression Status: Acute Category: Medical Code(s): F32.9 - Major depressive disorder, single episode, unspecified (10) Transaminitis Status: Acute Category: Medical Code(s): R74.01 - Liver functions remain elevated. Continue serial monitoring of LFTs (11) Gram-positive bacteremia Status: Suspected Category: Medical Code(s): R78.81 - Bacteremia Continue IV Rocephin. Patient has an aerobic bottle that appears to be growing a different gram-positive cocci species than the anaerobic bottle from the other set of cultures. Await final readings before discharge
[2019-11-29 12:00] VITALS: BP 132/77; PULSE 91; RESP 18; TEMP 36.6; O2SAT 96
--- NOTE | 2019-11-29 15:49 | PC.NURSE ---
Pt has been pleasant and cooperative this shift. A&O X4. No complaints of pain. Lungs CTA. No edema noted. Abrasion noted to LT forearm, dressed with Telfa/Kerlix/RODDY. MARISELA hose in place to BLE. Pt ambulates independently to/from the bathroom and voids without issue. 1 large, soft, brown BM this shift. Pt has sat up in the recliner for the majority of the shift. IVF's DC'd this AM. 20 G peripheral IV in place to the RT AC and LT wrist. VSS. Pt is on room air with sats. >95%. Call light within reach. Will continue to monitor.
[2019-11-29 16:00] VITALS: BP 124/52; PULSE 77; RESP 18; TEMP 36.8; O2SAT 97
[2019-11-29 20:00] VITALS: BP 133/74; PULSE 73; RESP 17; TEMP 36.6; O2SAT 90
[2019-11-30] VITALS: BP 137/62; PULSE 79; RESP 17; TEMP 37; O2SAT 96
[2019-11-30 04:00] VITALS: BP 148/82; PULSE 94; RESP 20; TEMP 36.9; O2SAT 98
--- NOTE | 2019-11-30 04:37 | PC.NURSE ---
Addendum entered by Vickie Lopez RN 11/30/19 04:47: At best pt reaches 1750 on IS Original Note: Pt has slept majority of this shift. Pt has had no complaints of pain or discomfort this shift. Pt has had multiple incontinent episodes this shift and has not notified staff until staff comes in to perform hourly checks. Incentive spirometer was given to pt this shift. Pt was educated on proper use and how often it should be used. Pt continues to ambulate independently t/o room with a steady gait and balance. Pt has had a dry, non productive cough intermittently this shift. Lung sounds remain diminished t/o BL. Pt is currently sleeping in chair at this time. Call light is within reach. Will continue to monitor.
[2019-11-30 05:00] VITALS: BMI 27.9
--- NOTE | 2019-11-30 06:36 | PC.NURSE ---
After pt received shower this shift, left arm dressing was changed. Telfa pads and kerlex in place.
[2019-11-30 07:27] LABS: Chloride 105 mmol/L (98-107); Sodium 138 mmol/L (136-145)
[2019-11-30 07:28] LABS: Potassium 3.4 mmoL/L (3.5-5.1)
[2019-11-30 07:30] LABS: Alanine Aminotransferase 142 U/L (12-78); Alkaline Phosphatase 67 U/L (38-126); Anion Gap 11.4 mEq/L (5-15); Aspartate Amino Transferase 181 U/L (17-59); Bilirubin,Direct 0.2 mg/dl (0.0-0.4); Bilirubin,Indirect 0.8 mg/dL (0.0-0.9); Bilirubin,Unconjugated 0.8 mg/dL (0.0-1.1); Blood Urea Nitrogen 12 mg/dl (9-20); Carbon Dioxide 25 mmol/L (22.0-30.0); Creatinine Clearance Estimated 175 mL/min (50-200); Estimated Glomerular Filt Rate 138 ml/min (>60); GFR (African American) 167 ML/MIN (>60)
[2019-11-30 07:31] LABS: Albumin Level 2.9 g/dl (3.5-5.0); Calcium 8.3 mg/dl (8.4-10.2); Glucose 96 mg/dl (74-100); Total Protein,Serum 5.7 g/dl (6.3-8.2)
[2019-11-30 08:00] VITALS: BP 159/89; PULSE 92; RESP 17; TEMP 36.6; O2SAT 95
--- NOTE | 2019-11-30 08:09 | HMH.DCSUM ---
General - General Admission date:: 11/27/19 Discharge date: 11/30/19 HPI HPI: 59-year-old male with history of hypertension, hypothyroidism, and suspected COPD presented to the emergency department today after family alerted EMS when patient was found in his residence on the floor with inability to get up and patient was confused as to how he had fallen. Patient had been on the floor for unknown period of time but it was suspected to be several hours as the patient could only recall the prior evening. He underwent evaluation in the emergency department which revealed elevated CPK consistent with rhabdomyolysis and work-up also revealed a right lower lobe infiltrate. Patient was admitted for IV fluids and IV antibiotics. Patient does report that he has had subjective fevers and chills over the last 4 to 5 days with a dry cough. He denies loss of smell or taste. He denies nasal congestion, ear pain, sore throat. Patient denies shortness of breath. He denies any sick contacts. Hospital Course Hospital Course: Patient was admitted with diagnosis of community-acquired pneumonia and started on Rocephin and azithromycin. Patient had intermittent confusion likely secondary to fevers the first day of admission. Patient was also started on IV fluids at 200 mL's per hour of normal saline due to rhabdomyolysis. Patient had excellent response to treatment. Within 24 hours pneumonia had improved both on x-ray and clinically. Patient did not require supplemental oxygen. Patient maintained good urine output. IV fluids were decreased and then on November 27 discontinued altogether. Patient stay was prolonged by the presence of abnormal blood cultures. Patient had a gram-positive cocci in both and anaerobic and an aerobic bottle but as time went on it appeared there were 2 separate species of bacteria growing. On the day of discharge his aerobic bottle grew staph simulans, a skin bacteria. This culture was believed to be contaminant and due to the anaerobic bottle seemingly growing a separate species it is likely this is also a contaminant. Patient will finish 3 additional days of oral antibiotics. Objective Vital signs: Temp Pulse Resp BP Pulse Ox 98.4 F 94 H 20 148/82 H 98 11/30/19 04:00 11/30/19 04:00 11/30/19 04:00 11/30/19 04:00 11/30/19 04:00 no acute distress - *Routine Respiratory Exam Present: CTA bilaterally - *Routine Cardiovascular Exam Present: RRR - *Routine Abdominal Exam Present: soft, normoactive bowel sounds. Absent: tenderness Results Labs on day of discharge: Labs from last 24 hours 11/30/19 07:08 Sodium 138 Potassium 3.4 L Chloride 105 Carbon Dioxide 25 Anion Gap 11.4 BUN 12 Creatinine 0.60 L Estimated Creat Clear 175 Estimated GFR 138 Est GFR ( Amer) 167 Glucose 96 Calcium 8.3 L Total Bilirubin 1.0 Direct Bilirubin 0.2 Conjugated Bilirubin 0.0 Indirect Bilirubin 0.8 Unconjugated Bilirubin 0.8 AST 181 H ALT 142 H Alkaline Phosphatase 67 Total Protein 5.7 L Albumin 2.9 L Preliminary micro results at discharge 11/27/19 10:24 Blood Culture - Preliminary Blood 11/27/19 17:16 Sputum Culture - Preliminary Sputum - Expectorated Sputum 11/27/19 10:24 Blood Culture - Preliminary Blood Staphylococcus simulans DS: Diagnosis - Discharge Diagnosis (1) Pneumonia Status: Acute (2) Altered mental status Status: Resolved (3) Hypermagnesemia Status: Resolved (4) Rhabdomyolysis Status: Resolved (5) Hypokalemia Status: Resolved (6) Essential hypertension Status: Acute (7) Hypothyroidism Status: Acute (8) COPD (chronic obstructive pulmonary disease) Status: Acute (9) Depression Status: Acute (10) Transaminitis Status: Acute (11) Gram-positive bacteremia Status: Suspected Discharge Plan - Patient Discharge Instructions ACTIVITY: Continue current activity
== END 2019-11-30 10:43 | disposition home or self-care (01) | DRG 194 ==
LOC: ER 10:18 → 2ND 12:23
PROVIDERS: Admitting Provider Family Medicine; Emergency Provider Emergency Medicine; Visit Provider Family Medicine
DX: J18.9 Pneumonia, unspecified organism (principal); M62.82 Rhabdomyolysis; J44.9 Chronic obstructive pulmonary disease, unspecified; Z72.0 Tobacco use; E03.9 Hypothyroidism, unspecified; E87.6 Hypokalemia; F32.9 Major depressive disorder, single episode, unspecified; E83.41 Hypermagnesemia
CPT/HCPCS: 36415; 70450; 71045; 71046; 72125; 80048; 80053; 80076; 80305; 81001; 82550; 82553; 83605; 83735; 84100; 84484; 85025; 85384; 85610; 86328; 87040; 87070; 87077; 87186; 87205; 93005; 96365; 96367; 97116; 97162; 99284; J0456; U0003

== ENCOUNTER 2024-03-18 16:44 | Emergency (ER) | payer MEDICARE, OTHER, SELFPAY ==
[2024-03-18 16:44] VITALS: RESP 18; TEMP 30.6; O2SAT 84; BMI 22.9
[2024-03-18] MEDS: EPINEPHrine 0.1 MG/ML 10ML SYRINGE (CRASH CART) 1 MG IV ×3 (16:46→16:52)
[2024-03-18] MEDS: CALCIUM CHLORIDE 1GM/10ML SYRINGE (CRASH CART) 1 GM IV ×2 (16:51)
--- NOTE | 2024-03-18 17:01 | HMH.EDGENADL ---
Discharge Plan Disposition Patient Disposition: Prescriptions Prescriptions: No Action cetirizine 10 MG tablet 10 mg PO DAILY amoxicillin-pot clavulanate 1 EACH tablet 1 tab PO Q12H Qty: 6 0RF carvedilol 12.5 MG tablet 12.5 mg PO BID Qty: 60 7RF gemfibrozil 600 MG tablet 600 mg PO BID Qty: 60 7RF levothyroxine 50 MCG tablet 50 mcg PO DAILY Qty: 30 7RF sertraline 50 MG tablet 50 mg PO DAILY Qty: 30 7RF Referrals Follow up/Referrals: Provider,Referral, MD [Primary Care Provider] - See instructions Clinical Impressions Clinical Impression: Cardiac arrest Print Language Print Language: Wolof Discharge ED Provider: Baudilio Lutz General Adult HPI General Stated complaint: TABBY GILMORE Time Seen by Provider: 03/18/24 16:52 History of Present Illness HPI narrative: TABBY GILMORE called out around 3:40 PM on 03/18. EMS arrival around 4 PM. Time to compressions 20 minutes Related Data Home Medications ?Medication ?Instructions ?Recorded ?Confirmed cetirizine 10 mg tablet 10 mg PO DAILY Allergy symptoms 11/27/19 11/27/19 Previous Rx's ?Medication ?Instructions ?Recorded amoxicillin 875 mg-potassium 1 tab PO Q12H #6 tabs 11/30/19 clavulanate 125 mg tablet carvedilol 12.5 mg tablet 12.5 mg PO BID High blood pressure 11/30/19 #60 tabs gemfibrozil 600 mg tablet 600 mg PO BID Cholesterol #60 tabs 11/30/19 levothyroxine 50 mcg tablet 50 mcg PO DAILY THYROID #30 tabs 11/30/19 sertraline 50 mg tablet 50 mg PO DAILY Depression #30 tabs 11/30/19 Allergies Allergy/AdvReac Type Severity Reaction Status Date / Time loratadine Allergy Unknown Unknown Verified 11/27/19 11:02 allergy reaction Tetracyclines Allergy Unknown Unknown Verified 11/27/19 11:02 allergy reaction [facility] Disclaimer: The information contained in this section may have been updated after the patient was seen, as this information can be updated by other users. Social History Smoking Status: Current every day smoker tobacco type: cigarettes packs per day: 1 alcohol intake: never current occupational status: disabled Travel in the last 8 weeks: None household members: other housing: other caffeine: No Other Medical History Have you received the Flu Vaccine for this season: No Have you received the Pneumonia Vaccine: No ROS Obtained: Yes unobtainable due to mental status Physical Exam General General appearance: other Comment: Pale, cyanotic, cold Eye Eye exam: Present other (Pupils fixed and dilated with overlying corneal changes) Respiratory Respiratory exam: Present other (Bilateral breath sounds with being bagged) Cardiovascular Cardiovascular exam: Present other (Asystole on initial pulse check) Neurological Exam Neurological exam: Present other (GCS 3T off sedation) Skin Skin exam: Present cyanosis and pallor Medical Decision Making Medical Records Medical records reviewed: Yes I reviewed the patient's medical records. Screening: Per USPSTF and CDC recommendations, given the prevalence of disease in our region, it is our hospital?s policy to screen for HIV and viral Hepatitis for all patients aged 18 and over and those with ongoing risk factors. Moe Inquiry Pt receiving controlled substance: No Moe was queried for this patient: No Medical Decision Narrative: This is a 64-year-old male unknown medical history initially presenting with cardiac arrest CODE BLUE. EMS story as follows: Initial EMS call out was around 3:45 PM, EMS arrived around 4 PM and compressions were started at that time. Patient was called out for eyes rolling back and becoming unresponsive. EMS arrival, patient's glucose was normal, asystole during multiple pulse checks. Intubated in the field. Prolonged extrication from initial location. Patient received multiple rounds of ACLS while being transported here to the emergency department. On arrival, patient pale, cyanotic, cold. Initial pulse check asystole on the monitor. Patient received multiple rounds of ACLS. Sodium bicarbonate, calcium, multiple rounds of epinephrine. Also received fluid bolus. Warm blankets were placed when Sena catheter placed and there was initial temp around 87 ?F. Temperature improved to around 93-94 ?F. During 1 pulse check, patient did have PEA on the monitor, no palpable pulse. After multiple rounds of ACLS, time of ultimately called 1655 for persistent asystole despite interventions. Critical Care Critical Care Time Critical Care Time: Yes (cardiac, pulmonary) Attestation: On 03/18/24, the high probability of a clinically significant, sudden or life threatening deterioration of the following system(s) required my full and direct attention, intervention and personal management. The time I documented below is in addition to time spent performing reported procedures but includes the following listed in this critical care notation. Total Time Total Critical Care Time: 60
--- NOTE | 2024-03-18 17:17 | PC.NURSE ---
[facility] CONTACTED AT THIS TIME. SPOKE WITH CARLOS PRADO
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
--- NOTE | 2024-03-18 18:29 | PC.NURSE ---
THAD OLSON, TAG STRINGER SPEAKING WITH [facility]
--- NOTE | 2024-03-18 19:06 | PC.NURSE ---
INSTRUCTOR BALLROOM DANCING AT BEDSIDE, WILL TAKE PT TO [facility] WHILE WAITING FOR FAMILY TO DECIDE ON ARRANGEMENTS
[2024-03-18 19:14] VITALS: BP 0/0; PULSE 0; RESP 0; TEMP -17.7; TEMP 0
--- NOTE | 2024-03-18 19:14 | PC.NURSE ---
PT WITH HAT BRIM CURLER AT THIS TIME. [facility] UPDATED
== END 2024-03-18 19:14 | disposition expired ==
PROVIDERS: Emergency Provider Emergency Medicine
DX: I46.9 Cardiac arrest, cause unspecified (principal)
CPT/HCPCS: 92950; 96374; 96375; 99291; J0171